=== PATIENT | female | born 1995 | race Caucasian/White ===

== ENCOUNTER 2018-03-30 06:12 | Day surgery (SDC) | payer OTHER ==
[2018-03-30 07:56] LABS: ADD MAN DIFF? NO
[2018-03-30 07:58] LABS: BASOPHILS % 0.1 % (0.0-2.0); EOSINOPHILS # 0.2 10^3/ul (0.0-0.5); EOSINOPHILS % 1.6 % (0.0-7.0); HEMATOCRIT 36.9 % (37.0-47.0); LYMPHOCYTES # 2.3 10^3/ul (0.8-2.9); LYMPHOCYTES % 23.3 % (15.0-51.0); MEAN CORPUSCULAR HEMOGLOBIN 25.6 pg (29.0-33.0); MEAN CORPUSCULAR HGB CONC 32.5 g/dl (32.0-37.0); MEAN CORPUSCULAR VOLUME 78.8 fl (82.0-101.0); MEAN PLATELET VOLUME 11.1 fl (7.4-10.4); MONOCYTE # 0.6 10^3/ul (0.3-0.9); NEUTROPHIL # 6.8 10^3/ul (1.6-7.5); NEUTROPHILS % 68.7 % (39.0-77.0); PLATELET COUNT 246 10^3/UL (140-415); RED BLOOD COUNT 4.68 10^6/ul (4.20-5.40); RED CELL DISTRIBUTION WIDTH 15.4 % (11.5-14.5)
[2018-03-30 07:58] LABS: WHITE BLOOD COUNT 9.8 10^3/ul (4.8-10.8)
[2018-03-30] MEDS ORDERED: MIDAZOLAM 1 MG/ML 2 ML INJ (08:13)
[2018-03-30] MEDS ORDERED: LIDOCAINE 2% (SDV) 5 ML INJ (08:13)
[2018-03-30] MEDS ORDERED: PROPOFOL 20 ML ×2 (08:13→09:10)
[2018-03-30] MEDS ORDERED: PROCHLORPERAZINE 10 MG INJ IV (08:30)
[2018-03-30] MEDS ORDERED: OXYCODONE/ACETAMINOPHEN (5/325) TAB PO (08:30)
[2018-03-30] MEDS ORDERED: FENTAnyl 50 MCG/ML VIAL IV (08:30)
[2018-03-30] MEDS ORDERED: DIPHENHYDRAMINE 50 MG INJ IV (08:30)
[2018-03-30] MEDS ORDERED: HYDROmorphONE (0.2 MG/ML) 10ML SYG IV ×3 (08:30)
[2018-03-30] MEDS ORDERED: FENTAnyl 50 MCG/ML VIAL (09:10)
[2018-03-30] MEDS ORDERED: CLINDAMYCIN 900 MG/D5W (PMX) 50 ML IVPB (09:14)
[2018-03-30] MEDS ORDERED: ONDANSETRON 4 MG INJ (09:19)
[2018-03-30] MEDS ORDERED: DEXAMETHASONE 4 MG/ML 1 ML INJ (09:19)
[2018-03-30] MEDS ORDERED: METOCLOPRAMIDE 10 MG INJ (09:19)
[2018-03-30] MEDS ORDERED: KETOROLAC 30 MG INJ IV (09:30)
[2018-03-30] MEDS ORDERED: IBUPROFEN 600 MG TAB PO (09:30)
[2018-03-30] MEDS ORDERED: OXYTOCIN 10 UNIT INJ (09:33)
[2018-03-30] MEDS: ONDANSETRON 4 MG INJ IV (10:30)
[2018-03-30] MEDS: MEPERIDINE 25 MG INJ IV (10:31)
== END 2018-03-30 11:23 | disposition home or self-care (01) ==
LOC: SDS 06:12
DX: O03.4 Incomplete spontaneous abortion without complication (principal); E66.01 Morbid (severe) obesity due to excess calories; Z68.43 Body mass index [BMI] 50.0-59.9, adult
CPT/HCPCS: 59812; 84703; 85025; 86900; 86901; 88305